=== PATIENT | female | born 1985 | race Two or more races ===

== ENCOUNTER 2018-05-21 12:38 | Inpatient (IN) | payer OTHER ==
[~2018-05-21] VITALS: Ht 149.9 cm; Wt 2.7 kg
== END 2018-06-04 13:06 | disposition home or self-care (01) | DRG 766 ==
LOC: O/R 06-01 05:58 → OB/GYN 06-01 05:58 → LDR 06-01 07:00 → OB/GYN 06-01 10:28 → LDR 06-01 12:10 → OB/GYN 06-04 13:06
PROVIDERS: Obstetrics & Gynecology
PROC: 0UB70ZZ Excision of Bilateral Fallopian Tubes, Open Approach (ICD-10-PCS; 2018-06-01)
PROC: 4A1HXCZ Monitoring of Products of Conception, Cardiac Rate, External Approach (ICD-10-PCS; 2018-06-01)
PROC: 4A033R1 Measurement of Arterial Saturation, Peripheral, Percutaneous Approach (ICD-10-PCS; 2018-06-01)
PROC: 10D00Z1 Extraction of Products of Conception, Low, Open Approach (ICD-10-PCS; principal; 2018-06-01 07:00)
DX: O34.211 Maternal care for low transverse scar from previous cesarean delivery (principal); O75.82 Onset (spontaneous) of labor after 37 completed weeks of gestation but before 39 completed weeks gestation, with delivery by (planned) cesarean section; Z3A.39 39 weeks gestation of pregnancy; Z37.0 Single live birth; Z30.2 Encounter for sterilization

== ENCOUNTER 2020-05-19 12:28 | Emergency (ER) | payer OTHER ==
[~2020-05-19] VITALS: Ht 149.9 cm; Wt 48.1 kg
== END 2020-05-19 21:12 | disposition home or self-care (01) ==
LOC: ER 12:28
DX: N93.8 Other specified abnormal uterine and vaginal bleeding (principal)